=== PATIENT | female | born 1995 | race Caucasian/White ===

== ENCOUNTER 2020-06-25 14:51 | Emergency (ER) | payer SELFPAY ==
[~2020-06-25] VITALS: Ht 167.6 cm; Wt 97.5 kg
[2020-06-25 15:13] VITALS: BP 110/64
--- NOTE | 2020-06-25 16:41 | NUR ---
covid swab collected and taken to lab, pt tolerated well.
[2020-06-25 16:42] VITALS: BP 110/64
--- NOTE | 2020-06-25 16:42 | NUR ---
Patient discharged with v/s stable. Written and verbal after care instructions given and explained. Patient verbalized understanding. Ambulatory with steady gait. All questions addressed prior to discharge. Advised to follow up with PMD.
--- NOTE | 2020-06-25 16:42 | NUR ---
CONCERNED AFTER HER FRIEND INFORMED PT OF BEING COVID-19 POSITIVE ----PT WITH MILD SYMPTOMS DESCRIBED SORE THROAT OR SCRATCHY, INTERMITTENT HEADACHES--- DENIES COUGH, DENIES N/V/D, DENIES FEVER/CHILLS
== END 2020-06-25 16:42 | disposition home or self-care (01) ==
LOC: MED 14:51
DX: R07.89 Other chest pain (principal); Z20.828 Contact with and (suspected) exposure to other viral communicable diseases
CPT/HCPCS: 99283; U0003